=== PATIENT | female | born 1935 | race Hispanic/Latino ===

== ENCOUNTER → 2019-04-17 | Outpatient (CLI) | payer OTHER, MEDICARE ==
[~2019-04-17] MED LIST: AEC81 PO; AMLO10TA7 PO; CLOP75TA32 PO; ESOM40CA54 PO; FLUO-126 PO; FOLI1TAB15 PO; FOLI1TAB61 PO; GABA-529 PO; HYDR-4154 PO; IBUP-2077 PO; LISI40TA4 PO; METO-409 PO; ROPI1TAB11 PO; SIMV20TA6 PO; TRAM50TA4 PO
== END | disposition home or self-care (01) ==
LOC: RAH 13:06
PROVIDERS: ATTEND Family Medicine
DX: N26.1 Atrophy of kidney (terminal) (principal); R31.29 Other microscopic hematuria; N32.89 Other specified disorders of bladder
CPT/HCPCS: 76770

== ENCOUNTER 2019-06-11 01:02 | Inpatient (IN) | payer OTHER, MEDICARE ==
[~2019-06-11] VITALS: Ht 154.9 cm; Wt 61.6 kg
[~2019-06-11 01:02] MED LIST changes: +SIMV-43 PO; -SIMV20TA6 PO
[2019-06-11 01:39] LABS: BASOPHILS % (AUTO) 0.5 % (0.0-5.0); EOSINOPHILS % (AUTO) 2.6 % (0.0-8.0); HEMATOCRIT 37.4 % (36-48); LYMPHOCYTES % (AUTO) 16.3 % (21.0-51.0); MEAN CORPUSCULAR HEMOGLOBIN 32.7 pg (27.0-33.0); MEAN CORPUSCULAR HGB CONC 32.7 g/dL (32.0-36.0); MEAN CORPUSCULAR VOLUME 99.9 fL (79-99); MONOCYTES % (AUTO) 3.9 % (3.0-13.0); NEUTROPHILS % (AUTO) 76.7 % (40.0-77.0); NUCLEATED RED BLOOD CELLS 0.1 % (0.0-0.19); PLATELET COUNT (AUTO) 166 K/uL (130-400); RED BLOOD CELL COUNT(AUTO) 3.74 MIL/uL (4.00-5.50); RED CELL DISTRIBUTION WIDTH 15.4 % (11.0-15.5); WHITE BLOOD COUNT (AUTO) 11.4 K/uL (4.8-10.8)
[2019-06-11 01:54] LABS: INR 0.96 (0.85-1.15); PROTHROMBIN TIME 10.1 SEC (9.6-11.6)
[2019-06-11 01:57] LABS: ALBUMIN 3.6 g/dL (3.5-5.0); BILIRUBIN,TOTAL 0.6 mg/dL (0.2-1.0); CREATININE 6.5 mg/dL (0.5-1.5); POTASSIUM 3.7 mmol/L (3.5-5.1); TOTAL PROTEIN, SERUM 7.9 g/dL (6.0-8.3)
[2019-06-11 02:11] LABS: BILIRUBIN,URINE Negative (NEGATIVE); COLOR,URINE Dark Yellow (YELLOW); GLUCOSE, URINE (UA) TRACE mg/dL (NEGATIVE); KETONES,URINE Negative (NEGATIVE); LEUKOCYTE ESTERASE ,URINE Large (NEGATIVE); NITRATE,URINE Negative (NEGATIVE); OCCULT BLOOD,URINE Moderate (NEGATIVE); PH,URINE 6.5 (5.0-8.0); PROTEIN,URINE >=1000 mg/dL (NEGATIVE)
[2019-06-11 02:15] LABS: INFLUENZA TYPE B NEGATIVE FOR TYPE B (NEG)
[2019-06-11 02:16] LABS: APPEARANCE,URINE TURBID (CLEAR)
[2019-06-11 02:16] LABS: INFLUENZA TYPE A POSITIVE FOR TYPE A (NEG)
[2019-06-11 02:19] LABS: BACTERIA,URINE Few /HPF (None Seen); SQUAMOUS EPITHELIAL CELL,UR Rare /HPF (0-2); WBC,URINE Full Field /HPF (0-1)
[2019-06-11] MEDS ORDERED: VANCOMYCIN 1GM+NS 250ML 250 ML IV ONE (03:42)
[2019-06-11] MEDS ORDERED: ZOSYN 3.375GM+NS 50ML 50 ML IV ONE (03:42)
[2019-06-11 03:45] LABS: AMYLASE 38 U/L (25-115); LIPASE 141 U/L (114-286)
[2019-06-11] MEDS ORDERED: OSELTAMIVIR PHOSPHATE 75 MG CAP ONE (04:06)
[2019-06-11] MEDS ORDERED: POTASSIUM CHLORIDE 20MEQ/100ML 100 ML IV PRN (06:00)
[2019-06-11] MEDS: CEFTRIAXONE SODIUM 1 GM IVP SCH (06:00)
[2019-06-11] MEDS ORDERED: POTASSIUM CHLORIDE 10% ELIXIR 20 MEQ/15 ML UDCUP PO PRN (06:00)
[2019-06-11] MEDS ORDERED: POTASSIUM CHLORIDE 20 MEQ ERTAB PO PRN (06:00)
[2019-06-11] MEDS ORDERED: LIDOCAINE HCL-MPF 1% 2ML VIAL IJ PRN (06:00)
[2019-06-11] MEDS ORDERED: DEXTROSE 50%-WATER 50 ML DISP.SYRIN IV PRN (06:00)
[2019-06-11] MEDS ORDERED: GLUCAGON 1MG KIT 1 MG ML IM PRN (06:00)
[2019-06-11] MEDS ORDERED: CEFTRIAXONE SODIUM 1 GM ONE (06:11)
[2019-06-11] MEDS ORDERED: COMPOUND IV MISC 1 EACH IVSOLN MISC PRN (07:15)
[2019-06-11] MEDS ORDERED: TRAMADOL HCL 50 MG TABLET ONE (07:20)
[2019-06-11] MEDS: INSULIN R PO SS2 SQ SCH ×4 (07:30→20:45)
[2019-06-11] MEDS ORDERED: ONDANSETRON HCL 4 MG/2 ML VIAL ONE (07:43)
[2019-06-11] MEDS ORDERED: OSELTAMIVIR PHOSPHATE 300 MG, WATER FOR INJECTION,STERILE 10 ML, COMPOUNDING VEHICLE SF... PO SCH ×3 (09:00)
[2019-06-11] MEDS ORDERED: OSELTAMIVIR PHOSPHATE 75 MG CAP PO SCH (09:00)
--- NOTE | 2019-06-11 11:33 | NUR ---
DCP: HOME Sw met with pt and her family at bedside, daughters Ashli Grier [phone] and pt's daughter Ivelisse, whom lives with pt. Pt has diallysis [facility] at 10:30 at [facility], is transported by Medicaid transport. On MFW provider comes 8-10 and 3-5, TTS they come 8-1, thru [facility]. Pt spends most of her day in w/c or bed. No HH services. PCP is Dr Deleon and pt uses [facility]. Plan is home with family and current services Addendum: 06/11/19 at 1149 by AKANKSHA BOYLE Amended: Links added.
[2019-06-11 16:30] VITALS: BP 175/69
[2019-06-11] MEDS ORDERED: PANT40TA25 PO (18:51)
[2019-06-11] MEDS ORDERED: CALC667C10 PO (18:51)
[2019-06-11] MEDS ORDERED: CLOP75TA32 PO (18:51)
[2019-06-11] MEDS ORDERED: ROPI1TAB11 PO (18:51)
[2019-06-11] MEDS ORDERED: FOLI1TAB61 PO (18:51)
[2019-06-11] MEDS ORDERED: GABA-529 PO (18:51)
[2019-06-11 23:25] VITALS: BP 162/66
[2019-06-12 03:25] VITALS: BP 195/72
[2019-06-12] MEDS ORDERED: TRAMADOL HCL 50 MG TABLET ONE (03:45)
[2019-06-12 04:39] LABS: HEMATOCRIT 33.4 % (36-48); MEAN CORPUSCULAR HEMOGLOBIN 33.7 pg (27.0-33.0); MEAN CORPUSCULAR HGB CONC 33.8 g/dL (32.0-36.0); MEAN CORPUSCULAR VOLUME 99.8 fL (79-99); PLATELET COUNT (AUTO) 138 K/uL (130-400); RED BLOOD CELL COUNT(AUTO) 3.35 MIL/uL (4.00-5.50); RED CELL DISTRIBUTION WIDTH 15.8 % (11.0-15.5)
[2019-06-12 05:09] LABS: EOSINOPHILS % (MANUAL) 1 % (1-6); LYMPHOCYTES % (MANUAL) 8 % (22-44); MONOCYTES % (MANUAL) 3 % (2-9); SEGMENTED NEUTROPHILS % 88 % (40-70)
[2019-06-12 05:10] LABS: MAN.DIFF COMMENT-IMPRESSION MANUAL DIFFERENTIAL
[2019-06-12 05:26] LABS: ALBUMIN 3.2 g/dL (3.5-5.0); BILIRUBIN,TOTAL 0.8 mg/dL (0.2-1.0); CREATININE 4.1 mg/dL (0.5-1.5); PHOSPHORUS 2.9 mg/dL (2.5-4.9); POTASSIUM 3.8 mmol/L (3.5-5.1)
[2019-06-12] MEDS: CEFTRIAXONE SODIUM 1 GM IVP SCH (05:42)
[2019-06-12] MEDS: INSULIN R PO SS2 SQ SCH ×4 (05:43→21:00)
[2019-06-12 08:00] VITALS: BP 182/65
[2019-06-12] MEDS ORDERED: NON-FORMULARY MEDICATION 1 EACH (Amlodipine Besylate 10 MG) PO SCH (09:00)
[2019-06-12] MEDS ORDERED: METOPROLOL TARTRATE 50 MG TAB PO SCH (09:00)
[2019-06-12] MEDS: PANTOPRAZOLE SODIUM 40 MG TABLET.DR PO SCH (09:12)
[2019-06-12] MEDS: CALCIUM ACETATE 667 MG CAPSULE PO SCH ×2 (09:12→17:00)
[2019-06-12] MEDS: AMLODIPINE BESYLATE 5 MG TAB PO SCH (09:13)
[2019-06-12] MEDS: GABAPENTIN 100 MG CAPSULE PO SCH ×2 (09:13→21:16)
[2019-06-12] MEDS: FLUOXETINE HCL 20 MG CAPSULE PO SCH (09:13)
[2019-06-12] MEDS: ASPIRIN 81 MG EC TAB PO SCH (09:16)
[2019-06-12] MEDS ORDERED: PHARMACY COMMUNICATION MISC SCH (10:15)
[2019-06-12 11:26] VITALS: BP 163/69
[2019-06-12] MEDS ORDERED: ACETAMINOPHEN EXTRA STRENGTH 500 MG TABLET PO SCH (15:00)
[2019-06-12 16:10] VITALS: BP 146/54
[2019-06-12 19:00] VITALS: BP 158/59
[2019-06-12] MEDS: OSELTAMIVIR PHOSPHATE 300 MG, WATER FOR INJECTION,STERILE 10 ML, COMPOUNDING VEHICLE SF... PO SCH ×3 (20:02)
[2019-06-12] MEDS: SIMVASTATIN 10 MG TABLET PO SCH (21:16)
[2019-06-12] MEDS: FOLIC ACID/VITAMIN B COMP W-C 1 MG CAP/TAB PO SCH (21:16)
[2019-06-12] MEDS: CLOPIDOGREL BISULFATE 75 MG TAB PO SCH (21:16)
[2019-06-12] MEDS: METOPROLOL TARTRATE 50 MG TAB PO SCH (21:16)
[2019-06-12 23:00] VITALS: BP 147/59
[2019-06-13 03:00] VITALS: BP 166/61
[2019-06-13] MEDS: CEFTRIAXONE SODIUM 1 GM IVP SCH (06:42)
[2019-06-13] MEDS: INSULIN R PO SS2 SQ SCH ×4 (06:43→21:00)
[2019-06-13 08:00] VITALS: BP 158/58
[2019-06-13] MEDS: CALCIUM ACETATE 667 MG CAPSULE PO SCH ×2 (08:00→17:01)
[2019-06-13 08:12] LABS: HEPATITIS A ANTIBODY IGM Negative (Negative); HEPATITIS B CORE IGM Negative (Negative); HEPATITIS Bs ANTIGEN SCREEN P Negative (Negative)
[2019-06-13] MEDS: AMLODIPINE BESYLATE 5 MG TAB PO SCH (09:00)
[2019-06-13 11:56] VITALS: BP 172/58
[2019-06-13 12:00] VITALS: BP 130/62
[2019-06-13] MEDS: FLUOXETINE HCL 20 MG CAPSULE PO SCH (13:04)
[2019-06-13] MEDS: ASPIRIN 81 MG EC TAB PO SCH (13:04)
[2019-06-13] MEDS: PANTOPRAZOLE SODIUM 40 MG TABLET.DR PO SCH (13:05)
[2019-06-13] MEDS: GABAPENTIN 100 MG CAPSULE PO SCH ×2 (13:05→21:42)
[2019-06-13] MEDS ORDERED: ACETAMINOPHEN 325 MG TAB PO PRN (15:15)
[2019-06-13] MEDS: ONDANSETRON HCL 4 MG/2 ML VIAL IVP PRN (15:25)
[2019-06-13 16:00] VITALS: BP 149/80
--- NOTE | 2019-06-13 17:08 | NUR ---
DR. FLORES CONSULT SPOKE WITH DR. FLORES ADVISING OF THE CONSULT REQUEST BY DR. KENISHA PHILIP THE CT RESULTS.
--- NOTE | 2019-06-13 18:40 | NUR ---
DIALYSIS PATIENT RECEIVED DIALYSIS TODAY FROM 0924 HOURS TO 1225 HOURS. REMOVED WAS 2.7 LITERS OF FLUID. PATIENT TOLERATED PROCEDURE WITHOUT INCIDENT.
[2019-06-13] MEDS: TRAMADOL HCL 50 MG TABLET PO PRN (19:05)
[2019-06-13 19:22] VITALS: BP 163/54
[2019-06-13] MEDS: OSELTAMIVIR PHOSPHATE 300 MG, WATER FOR INJECTION,STERILE 10 ML, COMPOUNDING VEHICLE SF... PO SCH ×6 (21:00→21:43)
[2019-06-13] MEDS: CLOPIDOGREL BISULFATE 75 MG TAB PO SCH (21:41)
[2019-06-13] MEDS: METOPROLOL TARTRATE 50 MG TAB PO SCH (21:41)
[2019-06-13] MEDS: FOLIC ACID/VITAMIN B COMP W-C 1 MG CAP/TAB PO SCH (21:41)
[2019-06-13] MEDS: SIMVASTATIN 10 MG TABLET PO SCH (21:41)
[2019-06-14 00:04] VITALS: BP 134/45
[2019-06-14] MEDS ORDERED: MANNITOL 25% 50ML VIAL ONE (00:57)
[2019-06-14 04:20] VITALS: BP 151/49
[2019-06-14] MEDS: CEFTRIAXONE SODIUM 1 GM IVP SCH (05:26)
[2019-06-14 07:00] VITALS: BP 187/64
[2019-06-14] MEDS: INSULIN R PO SS2 SQ SCH ×4 (07:30→21:00)
[2019-06-14] MEDS: CALCIUM ACETATE 667 MG CAPSULE PO SCH ×2 (08:18→17:14)
[2019-06-14] MEDS: GABAPENTIN 100 MG CAPSULE PO SCH ×2 (08:18→21:00)
[2019-06-14] MEDS: ASPIRIN 81 MG EC TAB PO SCH (08:18)
[2019-06-14] MEDS: PANTOPRAZOLE SODIUM 40 MG TABLET.DR PO SCH (08:18)
[2019-06-14] MEDS: AMLODIPINE BESYLATE 5 MG TAB PO SCH (08:18)
[2019-06-14] MEDS ORDERED: FLUCONAZOLE 100 MG TAB PO SCH (09:15)
[2019-06-14] MEDS: ONDANSETRON HCL 4 MG/2 ML VIAL IVP PRN (10:27)
[2019-06-14 11:00] VITALS: BP 159/59
--- NOTE | 2019-06-14 11:28 | NUR ---
CM Note: Family declined placement CM spoke to pt daughter Ashli Grier, discussed MD recommendations for poss short term rehab as pt is still weak, daughter at this time declined, prefers to take pt home, pt has good support system in place. Primary nurse and MD aware. DC plan to home once stable. CM to cont to follow up.
[2019-06-14 16:00] VITALS: BP 139/60
[2019-06-14 20:00] VITALS: BP 157/55
[2019-06-14] MEDS ORDERED: FLUOXETINE HCL 20 MG CAPSULE PO SCH (21:00)
[2019-06-14] MEDS: OSELTAMIVIR PHOSPHATE 300 MG, WATER FOR INJECTION,STERILE 10 ML, COMPOUNDING VEHICLE SF... PO SCH ×3 (21:00)
[2019-06-14] MEDS: SIMVASTATIN 10 MG TABLET PO SCH (21:15)
[2019-06-14] MEDS: METOPROLOL TARTRATE 50 MG TAB PO SCH (21:18)
[2019-06-14] MEDS: CLOPIDOGREL BISULFATE 75 MG TAB PO SCH (21:21)
[2019-06-14] MEDS: FOLIC ACID/VITAMIN B COMP W-C 1 MG CAP/TAB PO SCH (21:22)
[2019-06-14] MEDS: TRAMADOL HCL 50 MG TABLET PO PRN (21:31)
[2019-06-15 00:25] VITALS: BP 141/50
[2019-06-15 04:25] VITALS: BP 129/51
[2019-06-15] MEDS: CEFTRIAXONE SODIUM 1 GM IVP SCH (05:03)
[2019-06-15] MEDS: INSULIN R PO SS2 SQ SCH ×3 (06:14→16:30)
[2019-06-15 08:21] VITALS: BP 159/51
[2019-06-15] MEDS: GABAPENTIN 100 MG CAPSULE PO SCH (08:46)
[2019-06-15] MEDS: CALCIUM ACETATE 667 MG CAPSULE PO SCH ×2 (08:46→17:00)
[2019-06-15] MEDS: PANTOPRAZOLE SODIUM 40 MG TABLET.DR PO SCH (08:46)
[2019-06-15] MEDS: ASPIRIN 81 MG EC TAB PO SCH (08:46)
[2019-06-15] MEDS: AMLODIPINE BESYLATE 5 MG TAB PO SCH (08:47)
[2019-06-15] MEDS ORDERED: FLUCONAZOLE 100 MG TAB PO SCH (09:00)
--- NOTE | 2019-06-15 11:16 | NUR ---
DR DE VISITED WITH PATIENT. POC DISCUSSED. FAMILY AWARE OF DR. DE RECOMMENDATIONS TO SEND PT TO SNF FOR REHAB. DAUGHTER JYOTI INSIST SHE WANT TO TAKE CARE OF PT AT HOME. SHE VERBALIZES UNDERSTANDING ON COMPLICATIONS AND RISKS FOR FALLS.
[2019-06-15 12:00] VITALS: BP 174/50
[2019-06-15] MEDS: ONDANSETRON HCL 4 MG/2 ML VIAL IVP PRN (12:20)
[2019-06-15] MEDS: TRAMADOL HCL 50 MG TABLET PO PRN (15:21)
[2019-06-15 16:28] VITALS: BP 150/56
--- NOTE | 2019-06-15 17:15 | NUR ---
cm note received call from nurse that pt /family, states pt is too weak and needs EMS for transport home. setup, faxed clinical, FS and PCS form and order to Edward at [facility]. to fax [phone]. also emailed information to David with [facility]. updated Siddharth Cm director that no approval for this pt for EMS due to afterhours, but states to go ahead and setup and send pt via EMS as pt has medical necessity for EMS.
--- NOTE | 2019-06-15 19:05 | NUR ---
PM Assessment Received patient with family at the bedside. reported pending EMS clam picker.
--- NOTE | 2019-06-15 19:26 | NUR ---
PATIENT AND DAUGHTER JYOTI GIVEN DISCHARGE INSTRUCTIONS AND EDUCATION ON FOLLOW UP APPOINTMENTS AND STROKE EDUCATION. PATIENT AND DAUGHTER ALSO EDUCATED ON HOW TO PREVENT FALLS AT HOME SINCE THEY REPEATEDLY REFUSED PLACEMENT AT A REHAB FACILITY. JYOTI VERBALIZED UNDERSTANDING OF ALL EDUCATION GIVEN VIA TEACH BACK. IV DISCONTINUED, CATHETER INTACT. NO DISTRESS NOTED AT THIS TIME. EMS CALLED, WAITING FOR THEM TO COME AND TRANSFER PATIENT HOME. REPORT GIVEN TO JOVANY MERRILL AND ELIZABET MERRILL.
--- NOTE | 2019-06-15 22:48 | NUR ---
discharge patient picked up by EMS at this time. Lopressor 50 mg given at this time.
== END 2019-06-15 22:45 | disposition home or self-care (01) | DRG 871 ==
LOC: EDH 01:02 → EDHIP 05:25 → 3CH 16:07
PROVIDERS: ADMIT Family Medicine; ATTEND Family Medicine
PROC: 5A1D70Z Performance of Urinary Filtration, Intermittent, Less than 6 Hours Per Day (ICD-10-PCS; 2019-06-11)
PROC: 5A1D70Z Performance of Urinary Filtration, Intermittent, Less than 6 Hours Per Day (ICD-10-PCS; 2019-06-13)
PROC: 5A1D70Z Performance of Urinary Filtration, Intermittent, Less than 6 Hours Per Day (ICD-10-PCS; principal; 2019-06-15)
DX: A41.9 Sepsis, unspecified organism (principal); N18.6 End stage renal disease; I63.9 Cerebral infarction, unspecified; J11.00 Influenza due to unidentified influenza virus with unspecified type of pneumonia; G93.40 Encephalopathy, unspecified; I13.2 Hypertensive heart and chronic kidney disease with heart failure and with stage 5 chronic kidney disease, or end stage renal disease; N39.0 Urinary tract infection, site not specified; F03.90 Unspecified dementia, unspecified severity, without behavioral disturbance, psychotic disturbance, mood disturbance, and anxiety; D46.9 Myelodysplastic syndrome, unspecified; E11.22 Type 2 diabetes mellitus with diabetic chronic kidney disease; E11.43 Type 2 diabetes mellitus with diabetic autonomic (poly)neuropathy; E78.5 Hyperlipidemia, unspecified; I25.2 Old myocardial infarction; I50.9 Heart failure, unspecified; I65.29 Occlusion and stenosis of unspecified carotid artery; K21.9 Gastro-esophageal reflux disease without esophagitis; K31.84 Gastroparesis; M13.0 Polyarthritis, unspecified; Z86.73 Personal history of transient ischemic attack (TIA), and cerebral infarction without residual deficits; Z99.2 Dependence on renal dialysis
CPT/HCPCS: 36415; 70450; 71045; 72125; 80053; 80074; 81001; 82150; 82550; 82948; 83605; 83690; 84100; 84484; 85025; 85610; 85730; 87040; 87088; 87804; 90935; 93005; 93306; 93880; 97039; G0378; J0696; J1815; J2150; J2405; J2543; J3370